=== PATIENT | female | born 1985 | race Caucasian/White ===

== ENCOUNTER 2020-07-27 10:07 | Emergency (ER) | payer OTHER, SELFPAY ==
[2020-07-27 10:09] VITALS: BP 127/78; PULSE 128; RESP 18; TEMP 37.7; O2SAT 99; BMI 19.4
--- NOTE | 2020-07-27 10:33 | CT_ITS ---
EXAMINATION: CT ABDOMEN AND PELVIS WITH CONTRAST CLINICAL INFORMATION: Epigastric and right lower quadrant pain COMPARISON: None TECHNIQUE: Multidetector volumetric images were obtained from the superior aspect of the liver through the pubic symphysis following administration 85 mL ofOmnipaque 350 intravenous contrast. Sagittal and coronal reformatted images were obtained on the technologist's workstation. Oral contrast: Yes This CT examination was performed using dose optimization techniques as appropriate, variously including the following: *Automated exposure control *Adjustment of mA and/or kV according to patient size (this includes techniques or standardized protocols for targeted exams where dose is matched to indication/reason for exam; i.e. extremities or head) *Use of iterative reconstruction technique DLP: 344 mGy-cm FINDINGS: LUNG BASES: The visualized lung bases are unremarkable. LIVER, GALLBLADDER, AND BILIARY TREE: The liver is normal in size, shape, and attenuation. There is a small 3 mm low-attenuation lesion in the medial segment of the left lobe of the liver axial image 19 series 3. This is too small to definitively characterize but may probably represents a small cyst. No other focal liver lesion is seen. The gallbladder is unremarkable. There is no biliary duct dilatation. PANCREAS: Unremarkable. SPLEEN: Unremarkable. ADRENAL GLANDS: Unremarkable. KIDNEYS AND URETERS: The kidneys are normal in size, shape, and attenuation. No hydronephrosis, hydroureter, or calculi seen. No perinephric stranding. BLADDER: Unremarkable. GASTROINTESTINAL TRACT: There is abnormal wall thickening of the terminal ileum. The terminal ileum also appears slightly dilated. There is no evidence of obstruction. There are enlarged adjacent small bowel mesentery lymph nodes, largest measuring 1 x 1.3 cm. No evidence of perforation or abscess is seen. The small and large bowel is otherwise unremarkable. The appendix is unremarkable. The stomach is unremarkable. ABDOMINAL WALL: No significant hernia is appreciated. LYMPH NODES: There are enlarged right lower quadrant small bowel mesentery lymph nodes, largest measuring 1 x 1.3 cm axial image 48 series 3. There are small retroperitoneal lymph nodes. There is no ascites. VASCULAR: Unremarkable. PELVIC VISCERA: There is a 1.8 x 3.2 cm left ovarian cyst. Uterus and adnexa are otherwise unremarkable. OSSEOUS STRUCTURES: Unremarkable. CT/CT abdomen pelvis w con IMPRESSION: Dilatation and wall thickening of the terminal ileum. Enlarged adjacent right lower quadrant small bowel mesentery lymph nodes. Infectious, inflammatory and neoplastic processes should be considered.
--- NOTE | 2020-07-27 10:35 | ED_ITS ---
HPI - Abdominal Pain General Chief Complaint: Abdominal Pain Stated Complaint: abd pain Time Seen by Provider: 07/27/20 10:25 Source: patient Mode of arrival: ambulatory Limitations: no limitations History of Present Illness HPI narrative: 35yoF c No Sig PMHx presenting to the ED c c/o epigastric abd pain c associated fevers up to 100.5 orally since Saturday worse today. Along with nausea and decreased appetite. Denies any other symptoms complaints or concerns. Denies recent travel, sick contacts or bad food exposure. Related Data Home Medications Medication Instructions Recorded Confirmed Shaklee 1 tab PO DAILY 07/27/20 07/27/20 norgestimate-ethinyl estradiol 1 tab PO DAILY 07/27/20 07/27/20 [Sprintec (28)] Previous Rx's Medication Instructions Recorded levofloxacin 750 mg PO DAILY 7 Days #7 tab 07/27/20 metronidazole [Flagyl] 500 mg PO BID 7 Days #14 tab 07/27/20 ondansetron HCl [Zofran] 4 mg PO Q8H PRN #10 tab 07/27/20 oxycodone 5 mg PO Q8H PRN #10 tab 07/27/20 Allergies Allergy/AdvReac Type Severity Reaction Status Date / Time No Known Allergies Allergy Verified 07/27/20 10:15 Review of Systems Review of Systems Constitutional : No Weight loss, No Fever, No Chills, No Night Sweats, No Fatigue, NoMalaise ENT/Mouth: No ear pain, No sore throat, No Difficulty swallowing Cardiovascular : No Chest Pain, No SOB, No Dyspnea on Exertion, No Orthopnea, NoEdema, No Palpitations Respiratory : No Cough, No Sputum, No Wheezing, No Dyspnea Gastrointestinal : + Nausea, + abdominal Pain, No Vomiting, No Diarrhea, No Hematochezia, No Melena Genitourinary : No irregular bleeding, No Dysuria, No Urinary Frequency, No Hematuria,No Urinary Incontinence, No Urgency, No Flank Pain Musculoskeletal : No joint pain, No Myalgias, No Joint Swelling Skin : No Skin Lesions, No rash Neuro : No Weakness Heme/Lymph: No Lymphadenopathy Yes all other systems are reviewed and are negative Physical Exam Vital Signs: Vital Signs: Vital Signs Temp Pulse Resp BP Pulse Ox 07/27/20 12:31 98.7 F 89 20 121/75 98 07/27/20 10:58 101.6 F H 07/27/20 10:55 114 H 18 126/71 98 07/27/20 10:09 99.8 F 128 H 18 127/78 99 Body Mass Index 19.4 vital signs have been reviewed as normal and appeared to be correct. Blood pressure normal. Heart rate normal. Respiration rate normal. Temperature normal. Oxygen saturation normal. Appearance: Alert. Oriented X3. No acute distress. Head: Normal external exam. Normocephalic. Eyes: PERRLA. EOMI. Conjunctiva and sclera normal. Eyelids normal. ENT:Pharynx normal. Uvula midline. Moist mucous membranes. Neck: Normal inspection. Neck supple. FROM. No meningeal signs. CVS: Normal heart rate and rhythm. Heart sound normal. No murmurs noted. Pulses normal throughout. Respiratory: No respiratory distress. Painless inspiration. Breath sounds normal. No wheezes/rales/rhonchi noted. Chest nontender. No accessory muscle usage noted or decreased air movement noted. Abdomen: Soft and referred pain when palpating the right lower quadrant patient reports she has pain in the epigastric abdominal area. Although no tenderness to palpation upon palpating on the epigastric abdominal area. Bowel sounds normal in all 4 quadrants. No distention noted. No organomegaly noted. No visible injury noted. Back: No CVA tenderness. Full range of motion noted. Skin: Skin warm and dry. Normal skin color. Normal skin turgor. No rashes/lesions/lacerations noted. Extremities: Extremities exhibit normal range of motion. Extremities nontender. Neuro: Oriented X 3. No motor deficit. No sensory deficit. Reflexes normal. Course Course Course Narrative: 10:25AM - 35yoF c No Sig PMHx presenting to the ED c c/o epigastric abd pain c associated fevers up to 100.5 orally since Saturday worse today. Along with nausea and decreased appetite. - concern for cholecystitis versus appendicitis - Plan: Labs, Blood cultures, lactic acid, CT scan of abd/pelvis c IV contrast. Provide IV fluids, 4 mg of Zofran, 2 mg of morphine, and 3.375 mg of Zosyn for possible intra-abdominal infection then re-evaluate. Reevaluation(s) Reevaluation #1: - WBC at 12.8. All other labs are within normal limits. Serum quant negative. UA within normal limits no evidence of UTI. CT scan revealed abnormal wall thickening of the terminal ileal with mesenteric lymph nodes no perforation or abscess was seen and the rest of the small and large bowel was unremarkable including the appendix and the stomach. They reported that this is possibly infectious versus inflammatory versus neoplastic process. Therefore I printed out the CT scan and gave a copy to the patient and instructed the patient that we would treat her pain and make sure she can tolerate p.o. and if she could DC home with Levaquin and Flagyl and referral to GI for further evaluation and treatment to rule out neoplasm after she finished the antibiotics. Patient most likely inflammatory/infectious process due to she is having fevers and this came on suddenly. Patient is tolerating p.o. fluids and is comfortable with 5 mg of oxycodone. Therefore will DC home with the plan stated above. Patient understands and agrees with this plan. Time: 14:04 MDM - Abdominal Pain Medical Records Attestation: I reviewed the patient's medical records. Lab Data Attestation: I reviewed the patient's lab results. Result diagrams: 07/27/20 10:45 07/27/20 10:45 Labs: Lab Results 07/27/20 07/27/20 07/27/20 Range/Units 10:45 10:45 10:45 WBC 12.8 H (4.8-10.8) X10*3/uL RBC 4.60 (4.20-5.50) X10*6/uL Hgb 13.9 (12.0-16.0) g/dl Hct 41.8 (37-47) % MCV 90.9 (80-98) fL MCH 30.2 (27.0-33.0) pg MCHC 33.3 (31.0-35.0) g/dl RDW 12.3 (11.0-16.0) % Plt Count 230 (160-400) X10*3/uL MPV 10.3 (9.4-12.3) fL Immature Gran % (Auto) 0.4 (0.0-0.4) % Neut % (Auto) 82.2 H (45-73) % Lymph % (Auto) 7.2 L (20-40) % Aiken % (Auto) 9.8 (2-11) % Eos % (Auto) 0.2 (0-4) % Baso % (Auto) 0.2 (0-2) % Lymph # (Auto) 0.9 L (1.2-4.9) X10*3/uL Aiken # (Auto) 1.3 H (0.1-1.2) X10*3/uL Eos # (Auto) 0.0 (0.0-0.4) X10*3/uL Baso # (Auto) 0.0 (0.0-0.2) X10*3/uL Abs Immat Gran (auto) 0.05 H (0.00-0.03) X10*3/uL Absolute Neuts (auto) 10.5 H (2.0-8.3) X10*3/uL Absolute Nucleated RBC 0.000 (0.0-0.012) X10*3/uL Nucleated RBC % (auto) 0.0 (0.0-0.2) /100WBC PT 13.0 (10.8-13.0) SEC INR 1.1 (0.9-1.1) Sodium 137 (135-145) mmol/L Potassium 4.0 (3.3-5.1) mmol/l Chloride 101 (96-108) mmol/L Carbon Dioxide 25 (22-29) mmol/L Anion Gap 15 (12-20) BUN 11 (9-16) mg/dL Creatinine 0.88 (0.5-1.4) mg/dL Estim Creat Clear Calc 74.0 Estimated GFR > 60 Random Glucose 111 (60-115) mg/dL Lactic Acid (0.5-2.0) mmol/L Calcium 8.6 (8.4-10.2) mg/dL Magnesium 2.1 (1.6-2.6) mg/dL Total Bilirubin 0.6 (0.0-1.0) mg/dL Direct Bilirubin 0.2 (0.0-0.5) mg/dL AST 26 (5-31) U/L ALT 21 (0-31) U/L Alkaline Phosphatase 64 (39-117) U/L Total Protein 7.8 (6.5-8.0) g/dL Albumin 4.2 (3.5-5.0) g/dL Beta HCG, Quant mIU/mL Urine Color Urine Appearance Urine pH (5.0-8.0) Ur Specific Berino (1.005-1.025) Urine Protein (NEG-TRACE) MG/DL Urine Glucose (UA) (NEG) MG/DL Urine Ketones (NEG) MG/DL Urine Blood (NEG) Urine Nitrite (NEG) Ur Leukocyte Esterase (NEG) 07/27/20 07/27/20 07/27/20 Range/Units 10:45 10:45 13:48 WBC (4.8-10.8) X10*3/uL RBC (4.20-5.50) X10*6/uL Hgb (12.0-16.0) g/dl Hct (37-47) % MCV (80-98) fL MCH (27.0-33.0) pg MCHC (31.0-35.0) g/dl RDW (11.0-16.0) % Plt Count (160-400) X10*3/uL MPV (9.4-12.3) fL Immature Gran % (Auto) (0.0-0.4) % Neut % (Auto) (45-73) % Lymph % (Auto) (20-40) % Aiken % (Auto) (2-11) % Eos % (Auto) (0-4) % Baso % (Auto) (0-2) % Lymph # (Auto) (1.2-4.9) X10*3/uL Aiken # (Auto) (0.1-1.2) X10*3/uL Eos # (Auto) (0.0-0.4) X10*3/uL Baso # (Auto) (0.0-0.2) X10*3/uL Abs Immat Gran (auto) (0.00-0.03) X10*3/uL Absolute Neuts (auto) (2.0-8.3) X10*3/uL Absolute Nucleated RBC (0.0-0.012) X10*3/uL Nucleated RBC % (auto) (0.0-0.2) /100WBC PT (10.8-13.0) SEC INR (0.9-1.1) Sodium (135-145) mmol/L Potassium (3.3-5.1) mmol/l Chloride (96-108) mmol/L Carbon Dioxide (22-29) mmol/L Anion Gap (12-20) BUN (9-16) mg/dL Creatinine (0.5-1.4) mg/dL Estim Creat Clear Calc Estimated GFR Random Glucose (60-115) mg/dL Lactic Acid 1.1 (0.5-2.0) mmol/L Calcium (8.4-10.2) mg/dL Magnesium (1.6-2.6) mg/dL Total Bilirubin (0.0-1.0) mg/dL Direct Bilirubin (0.0-0.5) mg/dL AST (5-31) U/L ALT (0-31) U/L Alkaline Phosphatase (39-117) U/L Total Protein (6.5-8.0) g/dL Albumin (3.5-5.0) g/dL Beta HCG, Quant < 2 mIU/mL Urine Color YELLOW Urine Appearance CLEAR Urine pH 8.0 (5.0-8.0) Ur Specific Berino <= 1.005 (1.005-1.025) Urine Protein NEG (NEG-TRACE) MG/DL Urine Glucose (UA) NEG (NEG) MG/DL Urine Ketones 15 (NEG) MG/DL Urine Blood 2+ H (NEG) Urine Nitrite NEG (NEG) Ur Leukocyte Esterase NEG (NEG) Imaging Data CT scan - abdomen: Attestation: I personally reviewed and interpreted this imaging study as follows: Radiologist's impression: FINDINGS: LUNG BASES: The visualized lung bases are unremarkable. LIVER, GALLBLADDER, AND BILIARY TREE: The liver is normal in size, shape, and attenuation. There is a small 3 mm low-attenuation lesion in the medial segment of the left lobe of the liver axial image 19 series 3. This is too small to definitively characterize but may probably represents a small cyst. No other focal liver lesion is seen. The gallbladder is unremarkable. There is no biliary duct dilatation. PANCREAS: Unremarkable. SPLEEN: Unremarkable. ADRENAL GLANDS: Unremarkable. KIDNEYS AND URETERS: The kidneys are normal in size, shape, and attenuation. No hydronephrosis, hydroureter, or calculi seen. No perinephric stranding. BLADDER: Unremarkable. GASTROINTESTINAL TRACT: There is abnormal wall thickening of the terminal ileum. The terminal ileum also appears slightly dilated. There is no evidence of obstruction. There are enlarged adjacent small bowel mesentery lymph nodes, largest measuring 1 x 1.3 cm. No evidence of perforation or abscess is seen. The small and large bowel is otherwise unremarkable. The appendix is unremarkable. The stomach is unremarkable. ABDOMINAL WALL: No significant hernia is appreciated. LYMPH NODES: There are enlarged right lower quadrant small bowel mesentery lymph nodes, largest measuring 1 x 1.3 cm axial image 48 series 3. There are small retroperitoneal lymph nodes. There is no ascites. VASCULAR: Unremarkable. PELVIC VISCERA: There is a 1.8 x 3.2 cm left ovarian cyst. Uterus and adnexa are otherwise unremarkable. OSSEOUS STRUCTURES: Unremarkable. CT/CT abdomen pelvis w con IMPRESSION: Dilatation and wall thickening of the terminal ileum. Enlarged adjacent right lower quadrant small bowel mesentery lymph nodes. Infectious, inflammatory and neoplastic processes should be considered. Critical Care Time Critical Care Time Critical Care Time: Yes Total Critical Care Time: 60 Attestation: I personally attest to this time spent taking care of the patient Discharge Plan Discharge Clinical Impression: Ileitis, terminal, Fever, Leukocytosis, Tachycardia Patient Disposition: Home, Self-Care Instructions: Irritable Bowel Syndrome (ED), Crohn Disease (ED), Colitis (ED) Additional Instructions: You had an abnormal CT scan which revealed dilation and wall thickening of the terminal ileum. Differential diagnosis includes infectious, inflammatory and needle plastic processes. Therefore I gave you a copy of your CT scan. We will be treating you for infectious process at this time and you should follow-up with the GI specialist that I will be referring you to after he finished antibiotics for further evaluation and treatment with possibly an endoscope and colonoscopy. Return if any new or worsening symptoms. Also follow-up with her primary care provider. Prescriptions: New metronidazole [Flagyl] 500 mg tablet 500 mg PO BID 7 Days Qty: 14 RF: 0 levofloxacin 750 mg tablet 750 mg PO DAILY 7 Days Qty: 7 RF: 0 oxycodone 5 mg tablet 5 mg PO Q8H PRN (Reason: pain) Qty: 10 RF: 0 ondansetron HCl [Zofran] 4 mg tablet 4 mg PO Q8H PRN (Reason: nausea and vomiting) Qty: 10 RF: 0 No Action norgestimate-ethinyl estradiol [Sprintec (28)] 0.25-35 mg-mcg tablet 1 tab PO DAILY RF: 0 Shaklee 1 tab PO DAILY RF: 0 Referrals: Deni Sparrow [Physician] - 1 day (Call today to make an appointment within the next 7-14 days) Stand Alone Forms: Work/School Release Print Language: Marshallese [facility] Past Medical History Attestation statement: The following information was validated with the patient. Medical History No significant past medical history Surgical History No significant past surgical history Social History Social History Smoked in Last 30 Days: No Use of substances other than those prescribed or required for medical reasons: No Advance Directives: No Advance Directives Information Provided: No
[2020-07-27 10:50] LABS: MANUAL DIFF FLAG NO
[2020-07-27] MEDS: ondansetron HCL 4 MG/2 ML VIAL IVPUSH (10:50)
[2020-07-27] MEDS: Morphine Sulfate 2 MG/ML CARTRIDGE IVPUSH (10:50)
[2020-07-27] MEDS: 0.9 % Sodium Chloride 1,000 ML 999 ML IVCONT (10:51)
[2020-07-27 10:55] VITALS: BP 126/71; PULSE 114; RESP 18; O2SAT 98
[2020-07-27 10:58] VITALS: TEMP 38.7
[2020-07-27 11:00] LABS: Basophils Percent Auto 0.2 % (0-2); Eosinophils Percent Auto 0.2 % (0-4); Hematocrit 41.8 % (37-47); Hemoglobin 13.9 g/dl (12.0-16.0); Imm Gran Abs Auto 0.05 X10*3/uL (0.00-0.03); Imm Gran Pct Auto 0.4 % (0.0-0.4); Lymphocytes Absolute Auto 0.9 X10*3/uL (1.2-4.9); Lymphocytes Percent Auto 7.2 % (20-40); Mean Corpuscular HGB Conc 33.3 g/dl (31.0-35.0); Mean Corpuscular Hemoglobin 30.2 pg (27.0-33.0); Mean Corpuscular Volume 90.9 fL (80-98); Mean Platelet Volume 10.3 fL (9.4-12.3); Monocytes Absolute Auto 1.3 X10*3/uL (0.1-1.2); Monocytes Percent Auto 9.8 % (2-11); Neutrophils Absolute Auto 10.5 X10*3/uL (2.0-8.3); Neutrophils Percent Auto 82.2 % (45-73); Platelet Count 230 X10*3/uL (160-400); Red Cell Distribution Width 12.3 % (11.0-16.0); White Blood Count 12.8 X10*3/uL (4.8-10.8)
[2020-07-27 11:03] LABS: INTERNATIONAL NORM RATIO 1.1 (0.9-1.1)
[2020-07-27 11:26] LABS: Lactic Acid 1.1 mmol/L (0.5-2.0)
[2020-07-27 11:29] LABS: Alanine Aminotransferase 21 U/L (0-31); Albumin Level 4.2 g/dL (3.5-5.0); Alkaline Phosphatase 64 U/L (39-117); Anion Gap 15 (12-20); Aspartate Amino Transferase 26 U/L (5-31); Bilirubin Direct 0.2 mg/dL (0.0-0.5); Bilirubin Total 0.6 mg/dL (0.0-1.0); Blood Urea Nitrogen 11 mg/dL (9-16); Calcium 8.6 mg/dL (8.4-10.2); Carbon Dioxide 25 mmol/L (22-29); Chloride 101 mmol/L (96-108); Estimated Glomerular Filt Rate > 60; Glucose Random 111 mg/dL (60-115); Magnesium 2.1 mg/dL (1.6-2.6); Sodium 137 mmol/L (135-145); Total Protein 7.8 g/dL (6.5-8.0)
[2020-07-27 11:37] LABS: HCG Quantitative < 2 mIU/mL
[2020-07-27] MEDS: iohexoL 350 MG/ML 100 ML INFUS..BTL 85 ML IV (12:08)
[2020-07-27 12:31] VITALS: BP 121/75; PULSE 89; RESP 20; TEMP 37.1; O2SAT 98
[2020-07-27] MEDS: Piperacillin Sodium/Tazobactam 3.375 GM in 0.9 % Sodium Chloride 50 ML IV (13:51)
[2020-07-27] MEDS: Acetaminophen 325 MG TABLET 975 MG PO (13:52)
[2020-07-27] MEDS: oxyCODONE HCl Immed Release 5 MG TABLET PO (13:52)
[2020-07-27 14:00] LABS: Glucose Urine UA NEG (NEG); Leukocyte Esterase Urine NEG (NEG); Nitrite Urine NEG (NEG); Specific Gravity - Urine <= 1.005 (1.005-1.025); Urine Blood 2+ (NEG); Urine Ketones 15 MG/DL (NEG); Urine Protein NEG (NEG-TRACE)
[2020-07-27 14:01] LABS: Appearance Urine CLEAR; Color Urine YELLOW
[2020-07-27 14:14] LABS: Squamous Epithelial Cell Urine TRACE /LPF; WBC Urine 0 /HPF (0-4)
[2020-07-27 16:11] LABS: SARS COV2 PCR INHOUSE NEGATIVE (Negative)
== END 2020-07-27 15:13 | disposition home or self-care (01) ==
PROVIDERS: Physician Assistant Medical; Emergency Provider Emergency Medicine; PCP Internal Medicine
DX: K50.00 Crohn's disease of small intestine without complications (principal); R50.9 Fever, unspecified; R59.0 Localized enlarged lymph nodes; Z20.828 Contact with and (suspected) exposure to other viral communicable diseases
CPT/HCPCS: 36415; 74177; 80048; 80076; 81001; 83605; 83735; 84702; 85025; 85610; 87040; 96365; 96374; 96375; 99284; 99291; J2270; J2405; J2543; Q9967; U0003

== ENCOUNTER 2020-08-16 11:50 | Emergency (ER) | payer OTHER, SELFPAY ==
[2020-08-16 11:53] VITALS: BP 131/71; PULSE 110; RESP 16; TEMP 37.3; O2SAT 98; BMI 19.1
[2020-08-16 13:41] VITALS: BP 110/71; PULSE 98; RESP 15; TEMP 36.8
--- NOTE | 2020-08-16 14:01 | CT_ITS ---
EXAMINATION: CT ABDOMEN AND PELVIS WITH CONTRAST CLINICAL INFORMATION: Terminal ileitis 3 weeks ago. Abdominal pain with diarrhea. COMPARISON: CT abdomen and pelvis with IV contrast 07/27/2020 TECHNIQUE: Multidetector volumetric images were obtained from the superior aspect of the liver through the pubic symphysis following administration 85 mL of Omnipaque 350 intravenous contrast. Sagittal and coronal reformatted images were obtained on the technologist's workstation. Oral contrast: No This CT examination was performed using dose optimization techniques as appropriate, variously including the following: *Automated exposure control *Adjustment of mA and/or kV according to patient size (this includes techniques or standardized protocols for targeted exams where dose is matched to indication/reason for exam; i.e. extremities or head) *Use of iterative reconstruction technique DLP: 337 mGy-cm FINDINGS: LUNG BASES: The visualized lung bases are unremarkable. LIVER, GALLBLADDER, AND BILIARY TREE: The liver is normal in size, shape, and attenuation. There are punctate hypodensities in the right hepatic lobe measuring 3 mm on axial image 17/3. There is a hypodensity seen surrounding ligament venosum, question fatty infiltration. The gallbladder is unremarkable with no evidence of radiopaque gallstones, gallbladder wall thickening, or obvious pericholecystic inflammatory changes. PANCREAS: Unremarkable. SPLEEN: Unremarkable. ADRENAL GLANDS: Unremarkable. KIDNEYS AND URETERS: The kidneys are normal in size, shape, and attenuation. No hydronephrosis, hydroureter, or calculi seen. No perinephric stranding. BLADDER: Unremarkable. GASTROINTESTINAL TRACT: Contrast opacified small bowel loops are normal caliber. The appendix is normal caliber. The terminal ileum is normal with no mural thickening or narrowing seen. The lymph node size in the right ileocecal mesentery has improved as well. The largest lymph node now measures 7 x 5 mm on axial image 47/3. There is nonspecific mild mural thickening involving the sigmoid colon on coronal image 24/5 on axial image 63/3. Rest of the colon is unremarkable. ABDOMINAL WALL: No significant hernia is appreciated. LYMPH NODES: Small shotty lymph nodes in the right VASCULAR: Unremarkable. PELVIC VISCERA: The uterus is retroverted and appears unremarkable. 3.1 x 1.9 cm cyst left adnexa likely cyst of ovarian or paraovarian origin. No free fluid seen. OSSEOUS STRUCTURES: No lytic or sclerotic process seen. A benign benign cyst suspected in L2 vertebra CT/CT abdomen pelvis w con IMPRESSION: Resolved terminal ileal mural thickening. The lymph nodes in the right lower quadrant mesentery are also improved. There is nonspecific mild mural thickening involving the sigmoid: And distal descending colon. This could be normal mucosal folds. If patient has pain in the left lower quadrant. Follow-up can be performed. Rest of colon is unremarkable. Normal appendix. Left adnexal cyst.
--- NOTE | 2020-08-16 14:08 | ED_ITS ---
HPI - Abdominal Pain General Chief Complaint: Abdominal Pain Stated Complaint: diarrhea Time Seen by Provider: 08/16/20 13:42 History of Present Illness HPI narrative: 35-year-old female who presents to the emergency department for evaluation of abdominal pain and diarrhea. The patient was seen in the emergency department approximately 3 weeks prior for abdominal pain and was diagnosed with terminal ileitis. The patient was treated with Flagyl and Levaquin with improvement of her symptoms. She advised to follow-up with Dr. Deni Sparrow but has not scheduled appointment yet. She states that she was feeling better until Saturday, 3 days prior to evaluation. She states that she de veloped severe, watery diarrhea. She states that she was moving her bowels frequently and lost count of her number of bowel movements. She states that last night she noticed bloody diarrhea and today the diarrhea was dark brown. She states that today she also developed severe, constant, cramping pain in her lower abdomen. She states this pain was different than the pain that she had 3 weeks ago. She states the pain is 8/10 at its worst. She had associated nausea but no vomiting. She states that she has had no appetite and she is not certain if he has lost weight. The patient denied fever but she states that last night she developed severe shaking chills and sweats. The patient states that she has 2 cousins on her paternal side to have Crohn's disease. She denies any abdominal surgeries. Related Data Home Medications Medication Instructions Recorded Confirmed Shaklee 1 tab PO DAILY 07/27/20 07/27/20 norgestimate-ethinyl estradiol 1 tab PO DAILY 07/27/20 07/27/20 [Sprintec (28)] Previous Rx's Medication Instructions Recorded levofloxacin 750 mg PO DAILY 7 Days #7 tab 07/27/20 metronidazole [Flagyl] 500 mg PO BID 7 Days #14 tab 07/27/20 ondansetron HCl [Zofran] 4 mg PO Q8H PRN #10 tab 07/27/20 oxycodone 5 mg PO Q8H PRN #10 tab 07/27/20 Allergies Allergy/AdvReac Type Severity Reaction Status Date / Time No Known Allergies Allergy Verified 07/27/20 10:15 Review of Systems Review of Systems Yes all other systems are reviewed and are negative Constitutional: Reports as per HPI Eyes: Reports as per HPI Reports as per HPI Cardiovascular: Reports as per HPI Respiratory: Reports as per HPI Gastrointestinal: Reports as per HPI Genitourinary: Reports as per HPI Musculoskeletal: Reports as per HPI Skin/Breast: Reports as per HPI Reports as per HPI and Reports Abnormal speech present Psychiatric: Reports as per HPI Allergic/Immunologic: Reports as per HPI Physical Exam Vital Signs: Vital Signs: Last Vital Signs Temp 98.3 F 08/16/20 13:41 Pulse 98 08/16/20 13:41 Resp 15 08/16/20 13:41 BP 110/71 08/16/20 13:41 Pulse Ox 98 08/16/20 11:53 Body Mass Index 19.1 Const: General: cooperative, no acute distress, alert and awake Orientation/consciousness: oriented to person and oriented to place Limitations: no limitations HENMT: Head: Yes normal to inspection, Yes normocephalic and Yes atraumatic Ears: external ears normal Eyes: General: appearance normal, both eyes and all related structures Periorbital: periorbital findings normal Eyelids: Yes eyelids normal Conjunctivae: conjunctivae normal Sclerae: sclerae normal Corneas: corneas normal Pupils: Equal, round and reactive pupils present Direct Ophthalmoscopy: normal light reflex Neck: Neck: Yes normal visual inspection and Yes supple Lymphatic: no lymphadenopathy noted Chest: Chest palpation & inspection: normal inspection of the chest and normal palpation of entire chest wall Resp: Effort & Inspection: normal respiratory effort, abnormal respiratory pattern, no audible wheezes and no respiratory distress Auscultation: clear to auscultation bilaterally, no crackles, no rales, no rhonchi and no wheezes Cardio: Rate: regular rate Rhythm: regular rhythm Heart sounds: S1 normal heart sound present, S2 normal heart sound present and Murmur heart sound present GI: Inspection: No distended and Yes other (Very thin abdomen) Palpation (GI): Soft to palpation, Tenderness to palpation present (GI) (Moderate to severe) in the LLQ and in the RLQ, no guarding and No hepatosplenomegaly present Auscultation: normal bowel sounds : General: Yes no CVA tenderness Back/Spine/Pelvis: Back: no CVA tenderness Skin: General skin exam: no rashes or lesions noted Lesions: no lesions Rashes: no rashes Wounds: no wounds Neuro: General: oriented to person and oriented to place Cranial nerves: Yes CN's II-XII intact bilaterally and Yes Equal, round and reactive pupils present Cognition (Neuro): normal cognition Speech: Abnormal speech present Motor exam (neuro): 5/5 motor strength present throughout Extrem: General: Yes normal to inspection, Yes full ROM, Yes no pedal edema and Yes no calf tenderness Psych: Appearance: grossly normal Mental Status: mental status grossly normal Speech and movement: Clear speech present Affect: normal affect Thought process: Normal thought process present Course Course Course Narrative: MDM: 35-year-old female who presented to the emergency department approximately 3 weeks prior for abdominal pain and was diagnosed with terminal ileitis and was treated with Flagyl, Levaquin and Zofran with improvement of her symptoms. Three days prior to coming to emergency department she developed severe watery diarrhea, and his team numerous episodes to count. Last night the diarrhea became bloody and this morning she developed lower abdominal cramping which was severe, 8/10. Physical examination revealed that she was afebrile with a temperature of 98.3?. She had a normal blood pressure and was tachycardic with a pulse of 120 beats per minute. The patient's physical examination did reveal lower abdominal tenderness otherwise was unremarkable. Concerned that the patient may have inflammatory bowel disease with worsening of her terminal ileitis, C difficile colitis also needs to be considered. I did order abdominal workup to evaluate CBC, BMP, LFTs, lipase, sedimentation rate, CRP, C difficile assay, stool cultures. I also ordered a CT scan of the abdomen and pelvis with both IV and oral contrast. The patient was treated with normal saline x1 L, Toradol 30 mg IV and Zofran 4 mg IV. Discharge Plan Discharge Prescriptions: No Action norgestimate-ethinyl estradiol [Sprintec (28)] 0.25-35 mg-mcg tablet 1 tab PO DAILY RF: 0 Shaklee 1 tab PO DAILY RF: 0 metronidazole [Flagyl] 500 mg tablet 500 mg PO BID 7 Days Qty: 14 RF: 0 levofloxacin 750 mg tablet 750 mg PO DAILY 7 Days Qty: 7 RF: 0 oxycodone 5 mg tablet 5 mg PO Q8H PRN (Reason: pain) Qty: 10 RF: 0 ondansetron HCl [Zofran] 4 mg tablet 4 mg PO Q8H PRN (Reason: nausea and vomiting) Qty: 10 RF: 0 PMFSH Past Medical History PMFSH Narrative: The patient has no medical problems. She has had no past surgeries. She denies tobacco, alcohol or drug use. She has 2 paternal cousins that have Crohn's disease. Medical History No significant past medical history Surgical History No significant past surgical history Social History Social History Smoking Status: Never smoker Use of substances other than those prescribed or required for medical reasons: No Advance Directives: No Advance Directives Information Provided: Yes
[2020-08-16 14:22] LABS: MANUAL DIFF FLAG NO
[2020-08-16 14:23] LABS: Basophils Absolute Auto 0.1 X10*3/uL (0.0-0.2); Basophils Percent Auto 0.5 % (0-2); Eosinophils Absolute Auto 0.1 X10*3/uL (0.0-0.4); Eosinophils Percent Auto 0.7 % (0-4); Hematocrit 38.6 % (37-47); Imm Gran Abs Auto 0.05 X10*3/uL (0.00-0.03); Imm Gran Pct Auto 0.5 % (0.0-0.4); Lymphocytes Percent Auto 9.2 % (20-40); Mean Corpuscular HGB Conc 33.7 g/dl (31.0-35.0); Mean Corpuscular Hemoglobin 31.3 pg (27.0-33.0); Mean Corpuscular Volume 92.8 fL (80-98); Mean Platelet Volume 10.4 fL (9.4-12.3); Monocytes Absolute Auto 0.7 X10*3/uL (0.1-1.2); Monocytes Percent Auto 6.5 % (2-11); Neutrophils Absolute Auto 8.9 X10*3/uL (2.0-8.3); Neutrophils Percent Auto 82.6 % (45-73); Platelet Count 233 X10*3/uL (160-400); Red Blood Count 4.16 X10*6/uL (4.20-5.50); Red Cell Distribution Width 13.2 % (11.0-16.0); White Blood Count 10.8 X10*3/uL (4.8-10.8)
[2020-08-16] MEDS: ondansetron HCL 4 MG/2 ML VIAL IVPUSH (14:39)
[2020-08-16] MEDS: 0.9 % Sodium Chloride 1,000 ML 999 ML IVCONT (14:39)
[2020-08-16] MEDS: Ketorolac Tromethamine 30 MG/ML VIAL IVPUSH (14:39)
[2020-08-16 14:45] LABS: Alanine Aminotransferase 52 U/L (0-31); Albumin Level 4.2 g/dL (3.5-5.0); Alkaline Phosphatase 56 U/L (39-117); Anion Gap 15 (12-20); Aspartate Amino Transferase 45 U/L (5-31); Bilirubin Direct 0.3 mg/dL (0.0-0.5); Bilirubin Total 0.5 mg/dL (0.0-1.0); Blood Urea Nitrogen 13 mg/dL (9-16); C Reactive Protein 5.45 mg/dL (< or = 0.50); Calcium 9.4 mg/dL (8.4-10.2); Carbon Dioxide 23 mmol/L (22-29); Chloride 106 mmol/L (96-108); Creatinine Clr Calc Pharmacy 72.8; Estimated Glomerular Filt Rate > 60; Glucose Random 76 mg/dL (60-115); Lipase 54 U/L (8-78); Potassium 4.2 mmol/l (3.3-5.1); Sodium 140 mmol/L (135-145); Total Protein 7.7 g/dL (6.5-8.0)
--- NOTE | 2020-08-16 14:46 | PC.NURSE ---
pt drinking po contrast.
[2020-08-16 15:16] LABS: Erythrocyte Sedimentation Rate 12 MM/HR (0-20)
--- NOTE | 2020-08-16 15:30 | PC.NURSE ---
Pt up to bathroom to attempt urine/stool sample
[2020-08-16 15:56] LABS: Glucose Urine UA NEG (NEG); Leukocyte Esterase Urine NEG (NEG); Nitrite Urine NEG (NEG); Urine Blood 2+ (NEG); Urine Ketones 40 MG/DL (NEG); Urine Protein NEG (NEG-TRACE)
[2020-08-16 16:01] LABS: UPreg QC Valid YES; Urine Pregnancy NEGATIVE (NEGATIVE)
[2020-08-16 16:02] LABS: Appearance Urine CLEAR; Color Urine YELLOW
[2020-08-16 16:09] LABS: Bacteria Urine 1+ /LPF; Mucus Urine 1+ /LPF; Squamous Epithelial Cell Urine 1+ /LPF
[2020-08-16] MEDS: iohexoL 350 MG/ML 100 ML INFUS..BTL IV (16:23)
[2020-08-16] MEDS: Barium Sulfate Oral (Mocha) 450 ML ORAL.SUSP 900 ML PO (16:25)
[2020-08-16 17:02] LABS: CDIFF Ag Negative (Negative); CDIFF Internal ctrl Dots and bkg OK (V); CDiff Toxin Negative (Negative)
--- NOTE | 2020-08-16 17:13 | ED.ABDPAIN ---
HPI - Abdominal Pain General Chief Complaint: Abdominal Pain Stated Complaint: diarrhea Time Seen by Provider: 08/16/20 13:42 History of Present Illness HPI narrative: 35-year-old female who presents to the emergency department for evaluation of diarrhea and abdominal pain. The patient was seen here at this emergency department 3 weeks prior for abdominal pain. The patient had a CT scan at that time which revealed terminal ileitis with adenopathy. The patient was treated with Flagyl and Levaquin with improvement of her symptoms. The patient states that she never had GI follow-up. She states that over the past 3 days she developed watery diarrhea. She states that she had phy-[id number] diarrheal stools. She was taking Imodium with some improvement of the number of stools that she was having. She states that last night she had a watery stool with blood in it. She states that this morning she had dark brown watery stool. This morning she also developed lower abdominal cramping. She points to her suprapubic, left lower and right lower quadrant when asked to localize the pain. She states the pain is a constant, cramping sensation which is 8/10 at its worst. She states the last night she had shaking chills with sweats. The patient's symptoms got worse therefore she came to the emergency department for an evaluation. The patient states that she has 2 paternal cousins that have Crohn's disease. Related Data Home Medications Medication Instructions Recorded Confirmed Shaklee 1 tab PO DAILY 07/27/20 07/27/20 norgestimate-ethinyl estradiol 1 tab PO DAILY 07/27/20 07/27/20 [Sprintec (28)] Previous Rx's Medication Instructions Recorded levofloxacin 750 mg PO DAILY 7 Days #7 tab 07/27/20 metronidazole [Flagyl] 500 mg PO BID 7 Days #14 tab 07/27/20 ondansetron HCl [Zofran] 4 mg PO Q8H PRN #10 tab 07/27/20 oxycodone 5 mg PO Q8H PRN #10 tab 07/27/20 ondansetron 4 mg PO Q8H PRN 5 Days #10 tab 08/16/20 Allergies Allergy/AdvReac Type Severity Reaction Status Date / Time No Known Allergies Allergy Verified 07/27/20 10:15 Review of Systems Review of Systems Yes all other systems are reviewed and are negative Constitutional: Reports as per HPI Eyes: Reports as per HPI Reports as per HPI Cardiovascular: Reports as per HPI Respiratory: Reports as per HPI Gastrointestinal: Reports as per HPI Genitourinary: Reports as per HPI Musculoskeletal: Reports as per HPI Skin/Breast: Reports as per HPI Reports as per HPI and Reports Abnormal speech present Psychiatric: Reports as per HPI Allergic/Immunologic: Reports as per HPI Physical Exam Vital Signs: Vital Signs: Last Vital Signs Temp 98.3 F 08/16/20 13:41 Pulse 98 08/16/20 13:41 Resp 15 08/16/20 13:41 BP 110/71 08/16/20 13:41 Pulse Ox 98 08/16/20 11:53 Body Mass Index 19.1 Const: General: cooperative, no acute distress, alert and awake Orientation/consciousness: oriented to person and oriented to place Limitations: no limitations HENMT: Head: Yes normal to inspection, Yes normocephalic and Yes atraumatic Ears: external ears normal Eyes: General: appearance normal, both eyes and all related structures Periorbital: periorbital findings normal Eyelids: Yes eyelids normal Conjunctivae: conjunctivae normal Sclerae: sclerae normal Corneas: corneas normal Pupils: Equal, round and reactive pupils present Direct Ophthalmoscopy: normal light reflex Neck: Neck: Yes normal visual inspection and Yes supple Lymphatic: no lymphadenopathy noted Chest: Chest palpation & inspection: normal inspection of the chest and normal palpation of entire chest wall Resp: Effort & Inspection: normal respiratory effort, abnormal respiratory pattern, no audible wheezes and no respiratory distress Auscultation: clear to auscultation bilaterally, no crackles, no rales, no rhonchi and no wheezes Cardio: Rate: regular rate Rhythm: regular rhythm Heart sounds: S1 normal heart sound present, S2 normal heart sound present and Murmur heart sound present GI: Inspection: Yes normal to inspection (Very thin abdomen) Palpation (GI): Soft to palpation, Tenderness to palpation present (GI) in the LLQ, in the RLQ and suprapubicly, no guarding and No hepatosplenomegaly present Auscultation: normal bowel sounds : General: Yes no CVA tenderness Back/Spine/Pelvis: Back: no CVA tenderness Skin: General skin exam: no rashes or lesions noted Lesions: no lesions Rashes: no rashes Wounds: no wounds Neuro: General: oriented to person and oriented to place Cranial nerves: Yes CN's II-XII intact bilaterally and Yes Equal, round and reactive pupils present Cognition (Neuro): normal cognition Speech: Abnormal speech present Motor exam (neuro): 5/5 motor strength present throughout Extrem: General: Yes normal to inspection, Yes full ROM, Yes no pedal edema and Yes no calf tenderness Psych: Appearance: grossly normal Mental Status: mental status grossly normal Speech and movement: Clear speech present Affect: normal affect Thought process: Normal thought process present Course Course Course Narrative: 35-year-old female who presents emergency department for evaluation abdominal pain and diarrhea. The patient was diagnosed with terminal ileitis [address] scan with no GI follow-up. The patient's physical examination did reveal lower abdominal tenderness otherwise was unremarkable. Abdominal pain workup was ordered including CBC, CMP, lipase, CRP, CT scan of the abdomen pelvis with both oral and IV contrast. C diff assay and stool cultures with O and P were also ordered. The patient was treated with Toradol 30 mg IV, Zofran 4 mg IV and normal saline x1 L. 1724: The patient did get improvement with the above treatment. CT scan of the abdomen and pelvis with IV and oral contrast revealed resolution of the terminal mural wall thickening and improvement of the adenopathy. The patient had some mild nonspecific mural wall thickening of the sigmoid and descending colon. Laboratory evaluation revealed a slight elevation in her AST and ALT of 45 and 52. She had an elevated CRP of 5.45. C diff assay was negative. I did discuss these findings with the patient. At this time I do not have a clear etiology for her symptoms but she will need to follow-up with GI for a colonoscopy and I did discuss this with her. She was given the name of the client engagement specialist on-call advised to contact his doctor this week for follow-up appointment within the next 1-2 weeks. The patient was advised to continue taking Imodium for her diarrhea and to take Tylenol and ibuprofen for pain. She was also given a prescription for Zofran for her nausea. The patient will be given a work note as well. MDM - Abdominal Pain Medical Records Attestation: I reviewed the patient's medical records. Lab Data Attestation: I reviewed the patient's lab results. Result diagrams: 08/16/20 14:13 08/16/20 14:12 Labs: Lab Results 08/16/20 08/16/20 08/16/20 Range/Units 14:12 14:12 14:13 WBC 10.8 (4.8-10.8) X10*3/uL RBC 4.16 L (4.20-5.50) X10*6/uL Hgb 13.0 (12.0-16.0) g/dl Hct 38.6 (37-47) % MCV 92.8 (80-98) fL MCH 31.3 (27.0-33.0) pg MCHC 33.7 (31.0-35.0) g/dl RDW 13.2 (11.0-16.0) % Plt Count 233 (160-400) X10*3/uL MPV 10.4 (9.4-12.3) fL Immature Gran % (Auto) 0.5 H (0.0-0.4) % Neut % (Auto) 82.6 H (45-73) % Lymph % (Auto) 9.2 L (20-40) % [place] % (Auto) 6.5 (2-11) % Eos % (Auto) 0.7 (0-4) % Baso % (Auto) 0.5 (0-2) % Lymph # (Auto) 1.0 L (1.2-4.9) X10*3/uL [place] # (Auto) 0.7 (0.1-1.2) X10*3/uL Eos # (Auto) 0.1 (0.0-0.4) X10*3/uL Baso # (Auto) 0.1 (0.0-0.2) X10*3/uL Abs Immat Gran (auto) 0.05 H (0.00-0.03) X10*3/uL Absolute Neuts (auto) 8.9 H (2.0-8.3) X10*3/uL Absolute Nucleated RBC 0.000 (0.0-0.012) X10*3/uL Nucleated RBC % (auto) 0.0 (0.0-0.2) /100WBC ESR 12 (0-20) MM/HR Sodium 140 (135-145) mmol/L Potassium 4.2 (3.3-5.1) mmol/l Chloride 106 (96-108) mmol/L Carbon Dioxide 23 (22-29) mmol/L Anion Gap 15 (12-20) BUN 13 (9-16) mg/dL Creatinine 0.88 (0.5-1.4) mg/dL Estim Creat Clear Calc 72.8 Estimated GFR > 60 Random Glucose 76 (60-115) mg/dL Calcium 9.4 D (8.4-10.2) mg/dL Total Bilirubin 0.5 (0.0-1.0) mg/dL Direct Bilirubin 0.3 (0.0-0.5) mg/dL AST 45 H D (5-31) U/L ALT 52 H (0-31) U/L Alkaline Phosphatase 56 (39-117) U/L C-Reactive Protein 5.45 H (< or = 0.50) mg/dL Total Protein 7.7 (6.5-8.0) g/dL Albumin 4.2 (3.5-5.0) g/dL Lipase 54 (8-78) U/L Urine Color Urine Appearance Urine pH (5.0-8.0) Ur Specific [place] (1.005-1.025) Urine Protein (NEG-TRACE) MG/DL Urine Glucose (UA) (NEG) MG/DL Urine Ketones (NEG) MG/DL Urine Blood (NEG) Urine Nitrite (NEG) Ur Leukocyte Esterase (NEG) Urine RBC (0) /HPF Urine WBC (0-4) /HPF Ur Squamous Epith Cells /LPF Urine Bacteria /LPF Urine Mucus /LPF Urine Test (NEGATIVE) C. difficile Toxin A&B (Negative) C. difficile Antigen (Negative) C. difficile Interpret 08/16/20 08/16/20 Range/Units 15:46 15:46 WBC (4.8-10.8) X10*3/uL RBC (4.20-5.50) X10*6/uL Hgb (12.0-16.0) g/dl Hct (37-47) % MCV (80-98) fL MCH (27.0-33.0) pg MCHC (31.0-35.0) g/dl RDW (11.0-16.0) % Plt Count (160-400) X10*3/uL MPV (9.4-12.3) fL Immature Gran % (Auto) (0.0-0.4) % Neut % (Auto) (45-73) % Lymph % (Auto) (20-40) % [place] % (Auto) (2-11) % Eos % (Auto) (0-4) % Baso % (Auto) (0-2) % Lymph # (Auto) (1.2-4.9) X10*3/uL [place] # (Auto) (0.1-1.2) X10*3/uL Eos # (Auto) (0.0-0.4) X10*3/uL Baso # (Auto) (0.0-0.2) X10*3/uL Abs Immat Gran (auto) (0.00-0.03) X10*3/uL Absolute Neuts (auto) (2.0-8.3) X10*3/uL Absolute Nucleated RBC (0.0-0.012) X10*3/uL Nucleated RBC % (auto) (0.0-0.2) /100WBC ESR (0-20) MM/HR Sodium (135-145) mmol/L Potassium (3.3-5.1) mmol/l Chloride (96-108) mmol/L Carbon Dioxide (22-29) mmol/L Anion Gap (12-20) BUN (9-16) mg/dL Creatinine (0.5-1.4) mg/dL Estim Creat Clear Calc Estimated GFR Random Glucose (60-115) mg/dL Calcium (8.4-10.2) mg/dL Total Bilirubin (0.0-1.0) mg/dL Direct Bilirubin (0.0-0.5) mg/dL AST (5-31) U/L ALT (0-31) U/L Alkaline Phosphatase (39-117) U/L C-Reactive Protein (< or = 0.50) mg/dL Total Protein (6.5-8.0) g/dL Albumin (3.5-5.0) g/dL Lipase (8-78) U/L Urine Color YELLOW Urine Appearance CLEAR Urine pH 6.0 (5.0-8.0) Ur Specific [place] 1.010 (1.005-1.025) Urine Protein NEG (NEG-TRACE) MG/DL Urine Glucose (UA) NEG (NEG) MG/DL Urine Ketones 40 (NEG) MG/DL Urine Blood 2+ H (NEG) Urine Nitrite NEG (NEG) Ur Leukocyte Esterase NEG (NEG) Urine RBC 1-4 (0) /HPF Urine WBC 1-4 (0-4) /HPF Ur Squamous Epith Cells 1+ /LPF Urine Bacteria 1+ /LPF Urine Mucus 1+ /LPF Urine Test NEGATIVE (NEGATIVE) C. difficile Toxin A&B Negative (Negative) C. difficile Antigen Negative (Negative) C. difficile Interpret SEE NOTE Discharge Plan Discharge Clinical Impression: Abdominal pain, acute, Acute diarrhea Patient Disposition: Home, Self-Care Instructions: Abdominal Pain (ED) Additional Instructions: You had a CBC, complete metabolic panel, and CRP.. These tests were all normal except for a slightly elevated CRP of 5.4 which is consistent with inflammation. Your C difficile assay was negative which is reassuring. You have a stool culture and ova and parasite evaluation that is pending in the lab in these tests should come back in 2-3 days. It is important that you follow-up with your doctor to check these results. The CT scan of your abdomen and pelvis with both IV and oral contrast revealed resolution of the inflammation in the terminal ileum (terminal ileitis) and improvement in the adenopathy (swollen lymph nodes). This is reassuring however , you will still need to follow-up with a client engagement specialist for a colonoscopy and further evaluation. Take ibuprofen 200 mg pills, 2 pills every 6 hours as needed for pain. Take Tylenol 325 mg pills, 2 pills every 4 hours as needed for pain. Take Imodium as directed on the bottle to help reduce her diarrhea. Take the Zofran ODT 4 mg every 8 hours as needed for nausea and vomiting. Dr. Oleary is the client engagement specialist on-call. Call his office tomorrow to make a follow-up appointment for evaluation for possible inflammatory bowel disease. But his office know that you are here 2 times in the emergency department and that you need follow-up by the client engagement specialist. Follow-up with your primary care doctor in 2-3 days. Please return to the emergency department if her symptoms get worse or if you develop any new symptoms that are concerning to you. Prescriptions: New ondansetron 4 mg tablet,disintegrating 4 mg PO Q8H PRN (Reason: nausea and vomiting) 5 Days Qty: 10 RF: 0 No Action norgestimate-ethinyl estradiol [Sprintec (28)] 0.25-35 mg-mcg tablet 1 tab PO DAILY RF: 0 Shaklee 1 tab PO DAILY RF: 0 metronidazole [Flagyl] 500 mg tablet 500 mg PO BID 7 Days Qty: 14 RF: 0 levofloxacin 750 mg tablet 750 mg PO DAILY 7 Days Qty: 7 RF: 0 oxycodone 5 mg tablet 5 mg PO Q8H PRN (Reason: pain) Qty: 10 RF: 0 ondansetron HCl [Zofran] 4 mg tablet 4 mg PO Q8H PRN (Reason: nausea and vomiting) Qty: 10 RF: 0 Stand Alone Forms: Work/School Release [facility] Past Medical History [facility] Narrative: The patient denies tobacco, alcohol or drug use. The patient is employed. He has a family history of Crohn's disease with 2 paternal cousins that have Crohn's disease. Medical History No significant past medical history Surgical History No significant past surgical history Social History Social History Smoking Status: Never smoker Use of substances other than those prescribed or required for medical reasons: No Advance Directives: No Advance Directives Information Provided: Yes
== END 2020-08-16 17:43 | disposition home or self-care (01) ==
PROVIDERS: Emergency Provider Emergency Medicine Emergency Medical Services; PCP Internal Medicine
DX: R10.84 Generalized abdominal pain (principal); R19.7 Diarrhea, unspecified; Z79.899 Other long term (current) drug therapy
CPT/HCPCS: 36415; 74177; 80048; 80076; 81001; 81025; 83690; 85025; 85652; 86140; 87045; 87046; 87177; 87209; 87324; 87449; 96361; 96374; 96375; 99284; J1885; J2405; Q9967